=== PATIENT | female | born 1965 | race Caucasian/White ===

== ENCOUNTER → 2018-07-14 | Day surgery (SDC) | payer OTHER ==
[~2018-07-14] VITALS: Ht 167.6 cm; Wt 72.6 kg
--- NOTE | 2018-07-14 19:10 | Operative Report ---
Operative/Inv Procedure Report Surgery Date: 07/14/18 Name of Procedure: left ureter eswl, fluoroscopy, iv contrast injection Pre-Operative Diagnosis: left severe hydro. with ureter stones (not visible on fluoroscopy) Post-Operative Diagnosis: same Estimated Blood Loss: none Surgeon/Laboratory Sampler: Jacobo Reyes MD Anesthesia: moderate sedation Specimens: none Complications: none Condition: pain free Operative Indication: severe left hydro. Operative/Procedure Note Note: The patient was taken to the operating room and placed on the ESWL table in supine position. Time out was performed, with the patient awake, to confirm identity, procedure, laterality, and other pertinent hanna-operative information. After adequate anesthesia, the patient was positioned so that the left flank was placed over the ESWL table cut-out, and overlying the dome of the shockwave generator. C-arm fluroscopy, as well as renal US was used to locate the stone, and evaluate the left kidney. The stone was visible on fluroloscopy at the mid- left ureter. Renal US confirmed hydronephrosis, with one additional stone seen in the left kidney. The stones were NOT visible on fluoroscopy requiring 50cc iv contrast injection. AFter 15 min, the right hydronephrotic ureter was seen ending at filling the proximal ureter, where the filling defects were seen. The left ureter stones were approximate 1.6cm total burden size adjacent to each other. Using fluoroscopy, the position of the left ureter stone was optimized for ESWL, by using AP, and oblique views of the "stones". Subsequently, E.S.W.L. was initiated at low power levels x 200 shocks. After noting the patient's tolerance to the shockwaves, the shock wave lithotripor power level was quickly maximized. At the end of the procedure, the composition of the stone had changed significantly indicating the pulverization of the ureter stone. The contrast material drained quickly from the hydronephrotic renal pelvis and proximal ureter. A total of 3000 shockwaves were delivered to the stone in order to achieve adequate lithotrypsy. All sponge needle and instrument count were correct at the end of the case. The patient tolerated the procedure well, was awakened, and taken to recovery in satisfactory condition via stretcher. The pt will eventually be dischared to home with pain meds, diet orders, and intructions to catch fragments with straining the urine. The patient is to have follow-up renal ultrasound and KUB (after the left renal stone is treated as well). Discharge Disposition: Same Day Admissions Additional Comments: f/u in 4-6 weeks for renal stones CC: Jacobo Reyes MD
== END ==
LOC: STS 07:00
DX: N13.2 Hydronephrosis with renal and ureteral calculous obstruction (principal)
CPT/HCPCS: J2250